=== PATIENT | female | born 1965 | race Two or more races ===

== ENCOUNTER → 2019-08-25 | Outpatient (CLI) | payer OTHER ==
[2014-03-23 11:05] VITALS: BP 129/77
[~2019-08-25] MED LIST: ALPR0.25 PO; AMLO5TAB10 PO; ASPI-482 PO; IBUP-1060 PO; LISI1TAB20 PO; LORA10TA68 PO; METF10007 PO; OMEG1CAP6 PO; SAXA5TAB PO; SIMV20TA18 PO; TRIA15CR TP
--- NOTE | 2019-08-25 15:08 | RAD ---
EXAM: Left lower extremity venous Doppler sonogram. HISTORY: Pain and swelling. TECHNIQUE: Del Rosario scale and color Doppler sonographic evaluation of the left lower extremity veins with spectral waveform analysis was performed. FINDINGS: There is normal color flow, normal compressibility and there are normal spectral waveforms in the common femoral, superficial femoral, popliteal, posterior tibial and greater saphenous veins. IMPRESSION: No Doppler evidence of lower extremity deep venous thrombosis. Electronically signed by: Rayne Arango MD (08/25/2019 3:05 PM) [id number]
== END ==
LOC: US 14:30
PROVIDERS: ATTEND Internal Medicine
DX: M79.89 Other specified soft tissue disorders (principal)
CPT/HCPCS: 93971

== ENCOUNTER 2021-05-17 14:40 | Inpatient (IN) | payer OTHER ==
[~2021-05-17] VITALS: Ht 157.5 cm; Wt 74.9 kg
[~2021-05-17 14:40] MED LIST changes: +AMLO-186 PO; -AMLO5TAB10 PO; -LISI1TAB20 PO; +LISI1TAB39 PO
--- NOTE | 2021-05-17 14:56 | PHYS DOC ---
Past Medical History Past Medical History: Diabetes-Type II Smoking Status: Never Smoker General Adult HPI: HPI: Patient is a 55 year old diabetic female who presents via EMS with body aches and chills. Patient reports she started experiencing dysuria 4 days ago, accompanied by body aches and low abdominal pain for the past 3 days. Today, she called EMS because she started having shaking chills as well. She was seen by her primary care provider yesterday, who diagnosed her with a UTI. She started taking Bactrim yesterday. She has not experienced any dysuria since starting her antibiotic treatment. Patient states she took Tylenol around 1230 today, and her body aches have improved significantly. She also is no longer "shaking." Patient denies having had fever at home and, per EMS, she did not have a fever en route. She denies emesis, diarrhea, constipation. Patient reports that she does not take her blood sugar daily, but was instructed to start yesterday by her primary care doctor. She reports her last hemoglobin A1c was 9. Review of Systems: Review of Systems: Constitutional: See HPI Eyes: Denies change in visual acuity or visual field deficits. HENT: Denies nasal congestion or sore throat. Respiratory: Denies cough or shortness of breath. Cardiovascular: Denies chest pain or edema. GI: See HPI : See HPI Musculoskeletal: Denies back pain or joint pain. Integument: Denies rash or other skin lesions. Neurologic: Denies focal weakness or sensory changes. Endocrine: Denies polyuria or polydipsia. Heart Score: C/O Chest Pain: No Allergies: Allergies: Allergies Coded Allergies Type Severity Reaction Last Updated Verified No Known Drug Allergies 03/22/14 No Physical Exam: PE: Constitutional: Well developed, well nourished, no acute distress, non-toxic appearance. Cardiovascular: Heart rate regular rhythm, no murmur. Lungs & Thorax: Bilateral breath sounds clear to auscultation. Abdomen: Bowel sounds normal, soft, suprapubic tenderness appreciated, no masses, no pulsatile masses. Skin: Warm, dry, no erythema, no rash. Back: No tenderness, no CVA tenderness. Extremities: No tenderness, no cyanosis, no clubbing, ROM intact, no edema. Neurologic: Alert and oriented x4, motor function grossly intact, sensory fun ction grossly intact, no focal deficits noted. Current Patient Data: Labs: Laboratory Tests Test 05/17/21 15:08 05/17/21 15:53 White Blood Count 9.0 x10^3/uL (4.0-11.0) Red Blood Count 4.24 x10^6/uL (3.50-5.40) Hemoglobin 12.5 g/dL (12.0-15.5) Hematocrit 36.9 % (36.0-47.0) Mean Corpuscular Volume 87 fL (79-100) Mean Corpuscular Hemoglobin 29 pg (25-35) Mean Corpuscular Hemoglobin Concent 34 g/dL (31-37) Red Cell Distribution Width 12.8 % (11.5-14.5) Platelet Count 189 x10^3/uL (140-400) Neutrophils (%) (Auto) 89 % (31-73) Lymphocytes (%) (Auto) 8 % (24-48) Monocytes (%) (Auto) 2 % (0-9) Eosinophils (%) (Auto) 1 % (0-3) Basophils (%) (Auto) 0 % (0-3) Neutrophils # (Auto) 8.0 x10^3/uL (1.8-7.7) Lymphocytes # (Auto) 0.7 x10^3/uL (1.0-4.8) Monocytes # (Auto) 0.2 x10^3/uL (0.0-1.1) Eosinophils # (Auto) 0.0 x10^3/uL (0.0-0.7) Basophils # (Auto) 0.0 x10^3/uL (0.0-0.2) Sodium Level 135 mmol/L (136-145) Potassium Level 3.8 mmol/L (3.5-5.1) Chloride Level 99 mmol/L (98-107) Carbon Dioxide Level 21 mmol/L (21-32) Anion Gap 15 (6-14) Blood Urea Nitrogen 42 mg/dL (7-20) Creatinine 1.4 mg/dL (0.6-1.0) Estimated GFR (Cockcroft-Gault) 39.0 BUN/Creatinine Ratio 30 (6-20) Glucose Level 200 mg/dL (70-99) Lactic Acid Level 1.4 mmol/L (0.4-2.0) Calcium Level 9.0 mg/dL (8.5-10.1) Total Bilirubin 0.5 mg/dL (0.2-1.0) Aspartate Amino Transf (AST/SGOT) 18 U/L (15-37) Alanine Aminotransferase (ALT/SGPT) 31 U/L (14-59) Alkaline Phosphatase 102 U/L (46-116) Total Protein 6.4 g/dL (6.4-8.2) Albumin 3.3 g/dL (3.4-5.0) Albumin/Globulin Ratio 1.1 (1.0-1.7) Urine Collection Type Unknown Urine Color Yellow Urine Clarity Turbid Urine pH 5.0 (<5.0-8.0) Urine Specific [place] 1.020 (1.000-1.030) Urine Protein Negative mg/dL (NEG-TRACE) Urine Glucose (UA) >=1000 mg/dL (NEG) Urine Ketones (Stick) Negative mg/dL (NEG) Urine Blood Small (NEG) Urine Nitrite Negative (NEG) Urine Bilirubin Negative (NEG) Urine Urobilinogen Dipstick 0.2 mg/dL (0.2 mg/dL) Urine Leukocyte Esterase Moderate (NEG) Urine RBC 3-5 /HPF (0-2) Urine WBC >40 /HPF (0-4) Urine Bacteria Moderate /HPF (0-FEW) Urine Mucus Mod /LPF Vital Signs: Vital Signs Date Time Temp Pulse Resp B/P (MAP) Pulse Ox O2 Delivery O2 Flow Rate FiO2 05/17/21 15:58 102.3 125 18 136/71 (92) 99 Room Air 102.3 EKG: EKG: Course & Med Decision Making: Course & Med Decision Making Pertinent Labs and Imaging studies reviewed. (See chart for details) Patient has known UTI and has had less than 24 hours of antibiotic therapy. Lab work today will include urinalysis and labs. Patient was febrile on arrival and remains tachycardic in the department with urine showing signs of UTI. Additionally, the patient is an uncontrolled d iabetic and experienced reported rigors. She will be admitted to her primary care doctor, Dr. Martinez, for inpatient treatment. Per Dr. Martinez's request, patient was started on Rocephin. Dragon Disclaimer: Dragon Disclaimer: This electronic medical record was generated, in whole or in part, using a voice recognition dictation system. Departure Departure Impression: Primary Impression: Sepsis secondary to UTI Disposition: ADMITTED INPATIENT Admitting Physician: Ashwin Martinez Condition: GUARDED Referrals: ASHWIN MARTINEZ MD (PCP) LING ALFONSO May 17, 2021 14:56
[2021-05-17 15:23] LABS: BASO % 0 % (0-3); EOS % 1 % (0-3); HEMATOCRIT 36.9 % (36.0-47.0); HEMOGLOBIN 12.5 g/dL (12.0-15.5); LYMPH # 0.7 x10^3/uL (1.0-4.8); LYMPH % 8 % (24-48); MEAN CORPUSCULAR HEMOGLOBIN 29 pg (25-35); MEAN CORPUSCULAR HGB CONC 34 g/dL (31-37); MEAN CORPUSCULAR VOLUME 87 fL (79-100); MONO # 0.2 x10^3/uL (0.0-1.1); MONO % 2 % (0-9); NEUT % 89 % (31-73); PLATELET COUNT 189 x10^3/uL (140-400); RED BLOOD COUNT 4.24 x10^6/uL (3.50-5.40); RED CELL DISTRIBUTION WIDTH 12.8 % (11.5-14.5)
[2021-05-17 15:29] LABS: CREATININE 1.4 mg/dL (0.6-1.0); POTASSIUM 3.8 mmol/L (3.5-5.1)
[2021-05-17 15:35] LABS: ALBUMIN 3.3 g/dL (3.4-5.0); ALBUMIN/GLOBULIN RATIO 1.1 (1.0-1.7); TOTAL BILIRUBIN 0.5 mg/dL (0.2-1.0); TOTAL PROTEIN 6.4 g/dL (6.4-8.2)
[2021-05-17 16:02] LABS: BILIRUBIN,URINE NEGATIVE (NEG); CLARITY,URINE TURBID; COLOR,URINE YELLOW; NITRITE,URINE NEGATIVE (NEG); PROTEIN,URINE NEGATIVE (NEG-TRACE); UROBILINOGEN,URINE 0.2 mg/dL (0.2 mg/dL)
[2021-05-17 16:16] LABS: BACTERIA,URINE MODERATE /HPF (0-FEW); WBC,URINE >40 /HPF (0-4)
[2021-05-17] MEDS ORDERED: IV RINGERS,LACTATED 1000ML 1,000 ML IV ONE (16:45)
[2021-05-17] MEDS ORDERED: IBUPROFEN 200 MG TABLET. PO ONE (17:00)
[2021-05-17] MEDS ORDERED: cefTRIAXone IV Push 1 GM VIAL. IVP ONE (17:22)
[2021-05-17 19:50] VITALS: BP 114/66
--- NOTE | 2021-05-17 19:50 | NUR ---
Received patient from ER to room 442 per cart. Admitting diagnosis: septic UTI. Patient c/o painful urination for several days and she went to see PCP yesterday. Patient was started on Bactrim. During last night and today, patient started having a fever with chills and shaking. Patient called EMS and was brought to the hospital. Patient states she is allergic to Oxycodone. Patient denies pain on admission to floor. Patient was started on IV antibiotics in the ER. Will continue to monitor.
[2021-05-17] MEDS ORDERED: DEXTROSE 50% 25 GM / 50ML DISP.SYRIN. IV PRN (21:30)
[2021-05-17 23:00] VITALS: BP 100/55
[2021-05-17] MEDS ORDERED: MULT-658 PO (23:02)
[2021-05-17] MEDS ORDERED: vit D3 PO (23:02)
[2021-05-17] MEDS ORDERED: EMPA1TAB PO (23:02)
[2021-05-17] MEDS ORDERED: BUSP5TAB PO (23:02)
[2021-05-17] MEDS: IV NORMAL SALINE 1000ML BAG 1,000 ML IV SCH (23:10)
[2021-05-18 03:06] VITALS: BP 94/62
[2021-05-18 07:45] VITALS: BP 113/59
[2021-05-18] MEDS ORDERED: metFORMIN 500 MG TABLET PO SCH (08:00)
[2021-05-18] MEDS: INSULIN LISPRO 300 UNITS/3 ML VIAL. SQ SCH ×3 (08:00→17:00)
[2021-05-18] MEDS: ALPRAZolam 0.25 MG TABLET PO SCH (08:46)
[2021-05-18] MEDS: IV NORMAL SALINE 1000ML BAG 1,000 ML IV SCH ×2 (08:50→19:19)
[2021-05-18] MEDS: hydroCHLOROthiazide 25 MG TABLET PO SCH (09:00)
[2021-05-18] MEDS: LISINOPRIL 20 MG TABLET PO SCH (09:00)
[2021-05-18] MEDS: ASPIRIN ENTERIC COATED 81 MG TABLET.DR. PO SCH (09:00)
[2021-05-18 09:26] LABS: BASO % 0 % (0-3); EOS # 0.1 x10^3/uL (0.0-0.7); EOS % 2 % (0-3); HEMATOCRIT 35.4 % (36.0-47.0); HEMOGLOBIN 11.9 g/dL (12.0-15.5); LYMPH # 1.4 x10^3/uL (1.0-4.8); LYMPH % 19 % (24-48); MEAN CORPUSCULAR HEMOGLOBIN 30 pg (25-35); MEAN CORPUSCULAR HGB CONC 34 g/dL (31-37); MEAN CORPUSCULAR VOLUME 87 fL (79-100); MONO # 0.4 x10^3/uL (0.0-1.1); MONO % 6 % (0-9); NEUT # 5.6 x10^3/uL (1.8-7.7); NEUT % 73 % (31-73); PLATELET COUNT 209 x10^3/uL (140-400); RED BLOOD COUNT 4.04 x10^6/uL (3.50-5.40); RED CELL DISTRIBUTION WIDTH 12.8 % (11.5-14.5); WHITE BLOOD COUNT 7.6 x10^3/uL (4.0-11.0)
[2021-05-18] MEDS ORDERED: busPIRone 5 MG TABLET. PO PRN (09:30)
--- NOTE | 2021-05-18 09:30 | PDOC ---
Provider Note Date of Service: DATE: 05/18/21 TIME: 09:29 Provider Note Pt seen.H&P dictated.[id number]. Justifications for Admission Other Justification ASHWIN VICTORIA MD May 18, 2021 09:30
[2021-05-18 09:39] LABS: CREATININE 1.1 mg/dL (0.6-1.0); GFR 51.6; POTASSIUM 3.9 mmol/L (3.5-5.1)
--- NOTE | 2021-05-18 09:50 | HP ---
DATE OF SERVICE: 05/18/2021 ADMIT DATE: 05/17/2021 REASON FOR ADMISSION TO THE HOSPITAL: Fever, chills, possible pyelonephritis. HISTORY OF PRESENT ILLNESS: The patient is a 55-year-old female with history of diabetes, hypertension, hyperlipidemia. She was seen in the office for UTI as well as some back pain, was given Bactrim, but her condition did not improve, came to the Emergency Room, fever of 101, flank pain and the patient was admitted with diagnosis of possible pyelonephritis, was given IV Rocephin and fluids and the patient is supposed to get CT scan of the abdomen and pelvis today. PAST MEDICAL HISTORY: Diabetes; hypertension; history of uterine cancer, was treated at , had a hysterectomy, last time seen [facility] couple of weeks ago. PAST SURGICAL HISTORY: As mentioned, hysterectomy for uterine cancer. ALLERGIES: OXYCODONE. MEDICATIONS: At home on buspirone 5 mg daily, fish oil daily, Glyxambi 25/5 daily, ibuprofen p.r.n., multivitamin daily and Glizer daily. PERSONAL HISTORY: Denies smoking, alcohol, drug abuse. FAMILY HISTORY: Positive for diabetes, heart disease. REVIEW OF SYMPTOMS: Complains of back pain, chills and fever and rest of the 14 systems reviewed and negative. PHYSICAL EXAMINATION: VITAL SIGNS: The patient had a fever 102, pulse 125, respirations 18, blood pressure 136/71, O2 saturation 99 on room air. HEENT: Head is atraumatic. Pupils equal. Oral cavity, no congestion. NECK: Supple. Thyroid not enlarged. JVD not elevated. CHEST: Symmetrical. CARDIOVASCULAR: S1, S2. LUNGS: Clear. ABDOMEN: Soft. EXTERNAL GENITALIA: No Velez. RECTUM: Deferred. EXTREMITIES: No calf tenderness, no edema. NEUROLOGIC: No focal deficits. Moving all extremities. LABORATORY DATA: Shows a white count of 9, hemoglobin 12, platelets 128. Electrolytes: Sodium 135, potassium 3.8, chloride 99, bicarb 21, BUN 42, creatinine 1.4 and lactic acid 1.4. LFTs were normal. Urine shows 40 wbc, moderate leukocyte esterase. Blood culture shows gram-negative rods in both bottles. FINAL IMPRESSION: 1. Sepsis. 2. Pyelonephritis. 3. Urinary tract infection. 4. Diabetes. 5. History of uterine cancer, status post treatment. PLAN: At this time, admit to hospital, blood cultures, IV Rocephin, IV fluids, CT scan of the abdomen and pelvis and see how she improves in the next couple of days. ISAI DR: UYEN/jacque TID: [id number]
--- NOTE | 2021-05-18 10:09 | NUR ---
SW following. Discussed with RN, pt from home, room air, ada diet. Pt currently PUI for COVID. 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 RN advised no SW needs at this time. SW will continue to follow.
[2021-05-18] MEDS ORDERED: IOHEXOL 300 MG/ML 100ML VIAL. IV ONE (10:15)
[2021-05-18] MEDS ORDERED: CONTRAST GIVEN. MC PRN (10:15)
[2021-05-18 11:00] VITALS: BP 130/68
[2021-05-18] MEDS: HYDROcodone/APAP 5/325MG 1 TAB TABLET PO PRN ×2 (11:08→21:42)
--- NOTE | 2021-05-18 11:18 | RAD ---
CT of the abdomen and pelvis without contrast. 05/18/2021 9:52 AM Indication: Reason: pyelonephritis Comparison Study: None. Technique: Multidetector CT imaging of the abdomen pelvis is obtained without administration of contr ast. Findings: The visualized bilateral lung bases are clear. Gallbladder is surgically absent. The liver, spleen, bilateral adrenal glands, and pancreas have a normal noncontrast enhanced appearance. Mild perinephric stranding is seen bilaterally. Minimal prominence of the renal collecting system not ed. There is no nephrolithiasis or obstructive stone. The bladder wall appears mildly diffusely thick ened. There is no significant free fluid or free air in the abdomen or pelvis. There is no evidence of adi l obstruction or significant inflamatory change. The appendix is well visualized and grossly normal. There is no acute osseous abnormality identified. Impression: 1. Mild perinephric stranding and minimal prominence of the renal collecting systems. Mild diffuse bl adder wall thickening. Findings may represent cystitis. Upper urinary tract infection not excluded. 2. No evidence of nephrolithiasis or acute obstructive uropathy. 3. No other acute intra-abdominal abnormality is identified. CT DOSING PQRS STATEMENT: One or more of the following individualized dose reduction techniques were utilized for this examinat ion: 1. Automated exposure control 2. Adjustment of the mA and/or kV according to patient size 3. Use of iterative reconstruction technique Electronically signed by: Jason Oneil MD (05/18/2021 11:15 AM) [id number]
--- NOTE | 2021-05-18 13:12 | NUR ---
patient states she was eating cookies right before blood sugar was checked. patient states she does not feel comfortable taking insulin at this time. Patient wants to wait until dinner.
[2021-05-18] MEDS ORDERED: cefTRIAXone IV Push 1 GM VIAL. IVP SCH (17:00)
--- NOTE | 2021-05-18 17:30 | NUR ---
Care assumed of patient, report received from Radha SAINI
[2021-05-18] MEDS: IBUPROFEN 400 MG TABLET. PO SCH (18:26)
[2021-05-18 19:00] VITALS: BP 124/68
[2021-05-18] MEDS ORDERED: SIMVASTATIN 20 MG TABLET PO SCH (21:00)
[2021-05-18] MEDS: TRIAMCINOLONE ACETONIDE 0.5% TOPICAL CREAM 15GM TUBE. TP SCH (21:00)
[2021-05-18 23:00] VITALS: BP 98/58
[2021-05-19 02:48] VITALS: BP 102/60
[2021-05-19] MEDS: IV NORMAL SALINE 1000ML BAG 1,000 ML IV SCH (04:48)
[2021-05-19 07:00] VITALS: BP 116/59
[2021-05-19] MEDS: INSULIN LISPRO 300 UNITS/3 ML VIAL. SQ SCH ×2 (08:00→12:00)
[2021-05-19 08:08] LABS: BASO % 1 % (0-3); EOS # 0.2 x10^3/uL (0.0-0.7); EOS % 5 % (0-3); HEMATOCRIT 33.8 % (36.0-47.0); HEMOGLOBIN 11.4 g/dL (12.0-15.5); LYMPH % 22 % (24-48); MEAN CORPUSCULAR HEMOGLOBIN 29 pg (25-35); MEAN CORPUSCULAR HGB CONC 34 g/dL (31-37); MEAN CORPUSCULAR VOLUME 87 fL (79-100); MONO # 0.4 x10^3/uL (0.0-1.1); MONO % 10 % (0-9); NEUT # 2.7 x10^3/uL (1.8-7.7); NEUT % 62 % (31-73); PLATELET COUNT 201 x10^3/uL (140-400); RED BLOOD COUNT 3.87 x10^6/uL (3.50-5.40); RED CELL DISTRIBUTION WIDTH 12.5 % (11.5-14.5); WHITE BLOOD COUNT 4.3 x10^3/uL (4.0-11.0)
[2021-05-19 08:30] LABS: CALCIUM 8.4 mg/dL (8.5-10.1); GFR 57.6
[2021-05-19] MEDS: ASPIRIN ENTERIC COATED 81 MG TABLET.DR. PO SCH (08:47)
[2021-05-19] MEDS: IBUPROFEN 400 MG TABLET. PO SCH (08:47)
[2021-05-19] MEDS: ALPRAZolam 0.25 MG TABLET PO SCH (08:48)
[2021-05-19] MEDS: hydroCHLOROthiazide 25 MG TABLET PO SCH (09:00)
[2021-05-19] MEDS ORDERED: CHOLECALCIFEROL (VITAMIN D3) 1,000 UNIT TABLET PO SCH (09:00)
[2021-05-19] MEDS ORDERED: NON FORMULARY ITEM (Empagliflozin/Linagliptin (Glyxambi 25 mg-5 mg Tablet) 1 EACH) PO SCH (09:00)
[2021-05-19] MEDS: LISINOPRIL 20 MG TABLET PO SCH (09:00)
[2021-05-19] MEDS ORDERED: MULTIVITAMIN with MINERAL TABLET. PO SCH (09:00)
[2021-05-19] MEDS: TRIAMCINOLONE ACETONIDE 0.5% TOPICAL CREAM 15GM TUBE. TP SCH (09:00)
[2021-05-19 11:00] VITALS: BP 143/68
[2021-05-19] MEDS ORDERED: ONDANSETRON ODT 4 MG TAB.RAPDIS. PO PRN (12:00)
--- NOTE | 2021-05-19 12:08 | CONS ---
DATE OF CONSULTATION: 05/18/2021 REQUESTING PHYSICIAN: Mikey Martinez MD REASON FOR CONSULTATION: Pyelonephritis. HISTORY OF PRESENT ILLNESS: This is a 55-year-old female who started having burning with urination. The patient was seen in the office. Bactrim was given and then she started having chest pain, chest tightness and fever and chills and she was shaking hence she called ambulance and came in. The patient had 102 fever. The patient's blood culture is positive with E. coli. The patient is on Rocephin. The patient is feeling much better. She does have nausea. She denies any vomiting. Denies any chest pain, abdominal pain. Urinary symptoms has improved. Denies any bowel symptoms. PAST MEDICAL HISTORY: Positive for diabetes, hypertension, history of uterine cancer history. Has had hysterectomy. SOCIAL HISTORY: Negative for smoking, alcohol use or drug use. ALLERGIES: SHE IS LISTED ALLERGIC TO OXYCODONE. CURRENT MEDICATIONS: Reviewed. REVIEW OF SYSTEMS: As in HPI. All other systems reviewed are negative. PHYSICAL EXAMINATION: GENERAL: Alert, oriented female, not in distress. VITAL SIGNS: Stable, afebrile. HEENT: NAD. NECK: Supple, no JVP, no lymphadenopathy. LUNGS: Clear. HEART: S1, S2, regular. ABDOMEN: Soft, nontender, no organomegaly. EXTREMITIES: No edema, cyanosis. SKIN: Unremarkable. NEUROLOGIC: The patient is alert, awake, and appropriate. No focal neurologic deficit. LABORATORY DATA: White count is normal. BUN and creatinine is 26 and 1.0. Urinalysis showed more than 40 wbc's. Blood culture is positive with E. coli, susceptibilities are pending. For some reason, urine culture is not done. Abdominal CT showed mild perinephric stranding and prominence of the renal collecting system. IMPRESSION: 1. Urinary tract infection with sepsis. 2. Escherichia coli bacteremia. 3. Pyelonephritis. 4. Fever and chills. 5. Diabetes. 6. Hypertension. RECOMMENDATIONS: Continue Rocephin and as soon as susceptibilities are known, antibiotic can be switched over to the oral for possible discharge. Thank you very much, Dr. Martinez, for giving me opportunity to participate in this patient's care. KO/MACARIO DR: Renzo TID: [id number]
[2021-05-19] MEDS ORDERED: CEFD300C PO (12:14)
--- NOTE | 2021-05-19 12:15 | PDOC ---
PROGRESS NOTES Date of Service: DATE: 05/19/21 TIME: 12:15 Subjective Subjective feels good ,no fever Objective Objective Vital Signs Date Time Temp Pulse Resp B/P (MAP) Pulse Ox O2 Delivery O2 Flow Rate FiO2 05/19/21 07:39 Room Air 05/19/21 07:00 98.9 68 18 116/59 (78) 98 98.9 Intake and Output 05/19/21 07:00 Intake Total 1640 ml Balance 1640 ml Intake Oral 240 ml IV Total 700 ml Other 700 ml # Voids 4 Physical Exam Abdomen: Soft Heart: Normal S1, Normal S2 Extremities: No clubbing General: Alert HEENT: Atraumatic MUSCULOSKELETAL: No deformity Neuro: Normal speech Skin: No breakdown Diagnosis Problem List Problems Medical Problems: (1) Sepsis secondary to UTI Status: Acute Assessment Assessment Problems Medical Problems: (1) Sepsis secondary to UTI Status: Acute IMPRESSION: 1. Sepsis. 2. Pyelonephritis. 3. Urinary tract infection. 4. Diabetes. 5. History of uterine cancer, status post treatment. PLAN: E coli bacteremia due to Pyelonephritis CT scan stranding kidney d/c home cefdinir 300mg po bid x7 days f/u office in 1-2 weeks spoke with ID Plan Plan of Care Problems Medical Problems: (1) Sepsis secondary to UTI Status: Acute Comment Review of Relevant I have reviewed the following items taz (where applicable) has been applied. Labs Laboratory Tests Test 05/18/21 17:33 05/18/21 20:23 05/19/21 07:00 05/19/21 08:31 Glucose (Fingerstick) 150 mg/dL (70-99) 301 mg/dL (70-99) 135 mg/dL (70-99) White Blood Count 4.3 x10^3/uL (4.0-11.0) Red Blood Count 3.87 x10^6/uL (3.50-5.40) Hemoglobin 11.4 g/dL (12.0-15.5) Hematocrit 33.8 % (36.0-47.0) Mean Corpuscular Volume 87 fL (79-100) Mean Corpuscular Hemoglobin 29 pg (25-35) Mean Corpuscular Hemoglobin Concent 34 g/dL (31-37) Red Cell Distribution Width 12.5 % (11.5-14.5) Platelet Count 201 x10^3/uL (140-400) Neutrophils (%) (Auto) 62 % (31-73) Lymphocytes (%) (Auto) 22 % (24-48) Monocytes (%) (Auto) 10 % (0-9) Eosinophils (%) (Auto) 5 % (0-3) Basophils (%) (Auto) 1 % (0-3) Neutrophils # (Auto) 2.7 x10^3/uL (1.8-7.7) Lymphocytes # (Auto) 1.0 x10^3/uL (1.0-4.8) Monocytes # (Auto) 0.4 x10^3/uL (0.0-1.1) Eosinophils # (Auto) 0.2 x10^3/uL (0.0-0.7) Basophils # (Auto) 0.0 x10^3/uL (0.0-0.2) Sodium Level 141 mmol/L (136-145) Potassium Level 4.0 mmol/L (3.5-5.1) Chloride Level 108 mmol/L (98-107) Carbon Dioxide Level 22 mmol/L (21-32) Anion Gap 11 (6-14) Blood Urea Nitrogen 26 mg/dL (7-20) Creatinine 1.0 mg/dL (0.6-1.0) Estimated GFR (Cockcroft-Gault) 57.6 Glucose Level 146 mg/dL (70-99) Calcium Level 8.4 mg/dL (8.5-10.1) Test 05/19/21 11:54 Glucose (Fingerstick) 162 mg/dL (70-99) Microbiology 05/18/21 Blood Culture - Preliminary, Resulted NO GROWTH AFTER 1 DAY Medications Current Medications Ceftriaxone Sodium (Rocephin) 1 gm Q24H IVP Last administered on 05/18/21at 18:26; Start 05/18/21 at 17:00; Stop 05/19/21 at 12:00; Status DC Ceftriaxone Sodium (Rocephin) 2 gm Q24H IVP ; Start 05/19/21 at 13:00 Ibuprofen (Motrin) 800 mg BIDWMEALS PO Last administered on 05/19/21at 08:47; Start 05/18/21 at 17:00 Lactobacillus Rhamnosus (Culturelle) 1 cap BID PO ; Start 05/19/21 at 21:00 Metformin HCl (Glucophage) 1,000 mg DAILYWBKFT PO ; Start 05/21/21 at 08:00 Multivitamins (Thera M Plus) 1 tab DAILY PO Last administered on 05/19/21at 08:47; Start 05/19/21 at 09:00 Non-Formulary Medication (Empagliflozin/ Linagliptin (Glyxambi 25 mg-5 mg Tablet)) 1 each DAILY PO ; Start 05/19/21 at 09:00; Status UNV Ondansetron HCl (Zofran Odt) 4 mg PRN Q6HRS PRN PO NAUSEA/VOMITING; Start 05/19/21 at 12:00 Simvastatin (Zocor) 20 mg HS PO Last administered on 05/18/21at 21:36; Start 05/18/21 at 21:00 Triamcinolone Acetonide (Kenalog 0.5%) 1 mihir BID TP ; Start 05/18/21 at 21:00 Vitamin D (Vitamin D3) 1,000 unit QODAY PO Last administered on 05/19/21at 08:47; Start 05/19/21 at 09:00 Vitals/I & O Vital Sign - Last 24 Hours 05/18/21 05/18/21 05/18/21 05/18/21 19:00 19:40 21:42 22:12 Temp 98.4 98.4 Pulse 81 Resp 18 20 20 B/P (MAP) 124/68 (86) Pulse Ox 98 O2 Delivery Room Air Room Air Room Air Room Air 05/18/21 05/19/21 05/19/21 05/19/21 23:00 02:48 07:00 07:39 Temp 98.2 98.2 98.9 98.2 98.2 98.9 Pulse 61 60 68 Resp 18 18 18 B/P (MAP) 98/58 (71) 102/60 (74) 116/59 (78) Pulse Ox 98 95 98 O2 Delivery Room Air Room Air Room Air Room Air Intake and Output 05/18/21 05/18/21 05/19/21 15:00 23:00 07:00 Intake Total 1640 ml Balance 1640 ml Justifications for Admission Other Justification ASHWIN VICTORIA MD May 19, 2021 12:15
[2021-05-19] MEDS ORDERED: cefTRIAXone IV Push 2 GM VIAL. IVP SCH (13:00)
--- NOTE | 2021-05-19 15:24 | NUR ---
Pt discharged home with self care. Discharge instructions and prescriptions discussed. Pt verbalized understanding. IV removed. Pt ambulated to main entrance and was secured in car with .
[2021-05-19] MEDS ORDERED: LACTOBACILLUS RHAMNOSUS GG 1 CAPSULE. PO SCH (21:00)
[2021-05-21] MEDS ORDERED: metFORMIN 500 MG TABLET PO SCH (08:00)
== END 2021-05-19 15:42 | disposition home or self-care (01) | DRG 871 ==
LOC: ER 14:40 → ED HOLD 17:18 → 4 NORTH 18:24
PROVIDERS: ADMIT Internal Medicine; ATTEND Internal Medicine
DX: A41.51 Sepsis due to Escherichia coli [E. coli] (principal); N17.0 Acute kidney failure with tubular necrosis; N12 Tubulo-interstitial nephritis, not specified as acute or chronic; E11.9 Type 2 diabetes mellitus without complications; E78.5 Hyperlipidemia, unspecified; I10 Essential (primary) hypertension; Z83.3 Family history of diabetes mellitus; Z85.42 Personal history of malignant neoplasm of other parts of uterus; Z90.710 Acquired absence of both cervix and uterus; Z88.8 Allergy status to other drugs, medicaments and biological substances
CPT/HCPCS: 36415; 74178; 80048; 80053; 81001; 82962; 83605; 85025; 87040; 87077; 87086; 87186; 87205; 96361; 96374; G0379; J0696; J1815; J7030; J7120; Q9967; 99285-25

== ENCOUNTER 2021-11-17 18:26 | Emergency (ER) | payer OTHER ==
[~2021-11-17] VITALS: Ht 160 cm; Wt 73.3 kg
[~2021-11-17 18:26] MED LIST changes: +BUSP5TAB PO; +CEFD300C PO; +EMPA1TAB PO; +MULT-658 PO; +vit D3 PO
--- NOTE | 2021-11-17 19:02 | PHYS DOC ---
Past Medical History Past Medical History: Diabetes-Type II Past Surgical History: No Surgical History, Cholecystectomy, Other (total hysterectomy) Smoking Status: Never Smoker Alcohol Use: None Drug Use: None General Adult EDM: Chief Complaint: Chills HPI: HPI: 56-year-old female, past medical history NIDDM, hospitalization in April 2021 for urosepsis, total hysterectomy, cholecystectomy, presents with 1 day of chills and subjective fever. Denies dysuria or hematuria however endorses mild increased urinary frequency and increased thirst. Denies nausea, vomiting, sore throat, cough, chest pain, shortness of breath, abdominal pain or back pain. Covid vaccinated x 3. No travel. Review of Systems: Review of Systems: Constitutional: + subj fever and chills. [] Eyes: Denies change in visual acuity. [] HENT: Denies nasal congestion or sore throat. [] Respiratory: Denies cough or shortness of breath. [] Cardiovascular: Denies chest pain or edema. [] GI: Denies abdominal pain, nausea, vomiting, bloody stools or diarrhea. [] : Denies dysuria. [] Musculoskeletal: Denies back pain or joint pain. [] Integument: Denies rash. [] Neurologic: Denies headache, focal weakness or sensory changes. [] Endocrine: + mild increased urinary frequency and increased thirst Lymphatic: Denies swollen glands. [] Psychiatric: Denies depression or anxiety. [] Heart Score: C/O Chest Pain: No Risk Factors: Risk Factors: DM, Current or recent (<one month) smoker, HTN, HLP, family history of CAD, obesity. Risk Scores: Score 0 - 3: 2.5% MACE over next 6 weeks - Discharge Home Score 4 - 6: 20.3% MACE over next 6 weeks - Admit for Clinical Observation Score 7 - 10: 72.7% MACE over next 6 weeks - Early Invasive Strategies Allergies: Allergies: Allergies Coded Allergies Type Severity Reaction Last Updated Verified oxycodone Allergy Intermediate 05/17/21 Yes Physical Exam: PE: Constitutional: Well developed, well nourished, no acute distress, non-toxic ap pearance. [] HENT: Normocephalic, atraumatic, bilateral external ears normal, oropharynx moist, no oral exudates, nose normal. [] Eyes: PERRLA, EOMI, conjunctiva normal, no discharge. [] Neck: Normal range of motion, no tenderness, supple, no stridor. [] Cardiovascular:Heart rate regular rhythm, no murmur [] Lungs & Thorax: Bilateral breath sounds clear to auscultation [] Abdomen: Bowel sounds normal, soft, no tenderness, no masses, no pulsatile masses. [] Skin: Warm, dry, no erythema, no rash. [] Back: No tenderness, no CVA tenderness. [] Extremities: No tenderness, no cyanosis, no clubbing, ROM intact, no edema. [] Neurologic: Alert and oriented X 3, normal motor function, normal sensory function, no focal deficits noted. [] Psychologic: Affect normal, judgement normal, mood normal. [] EKG: EKG: [] Radiology/Procedures: Radiology/Procedures: [] Course & Med Decision Making: Course & Med Decision Making Pertinent Labs and Imaging studies reviewed. (See chart for details) Additional Social History: PMD from non-affiliated facility. Patient Lives at home. Family History: Non-pertinent to today's complaint. Nursing Notes Reviewed Previous Medical Records requested via [facility] Web: Reviewed by me. EMERGENT LABS AND DIAGNOSTIC STUDIES: Results were reviewed and interpreted by me as below EMERGENCY DEPARTMENT COURSE/ MEDICAL DECISION MAKING: The patient was placed on a court monitor, continuous pulse oximetry and was given supplemental oxygen. I examined the patient, evaluated and addressed patient's chief complaint. r/o infectious etiology, metabolic derangements, covid s/p ceftriaxone for UTI. COVID neg. s/p IV fluids Vitals normalized. Nontoxic appearing. CBC wnl. CMP showing mild LINDSEY Cr 1.3 and hyperglycemia 300s, likely secondary to UTI. No signs of sepsis. On re-assessment, patient feels much better. Stable for dc home with Cefdinir and routine pmd f/u. Strict ED return precautions given. The patient understands that todays Emergency Department evaluation does not represent a comprehensive medical workup, and it is impossible to diagnose all possible illnesses from a single Emergency Department visit. The patient verbalized understanding that it is absolutely necessary to have follow-up with regular primary care physician within 1-2 days for more detailed workup and continued exam. I explained the findings and plan to the patient, who expressed verbal understanding and agreed with plan for discharge and follow up. The patient was given after care instructions and welcomed to return to the ED for re-evaluation in 8-12 hours, especially for any new or worsening symptoms. Patient's blood pressure was elevated (>120/80) but appears stable without evidence of end organ damage, malignant hypertension, hypertensive emergency or urgency. The patient was counseled about the risks of hypertension and urged to pursue outpatient monitoring and therapy within a week with their primary care physician. The patient was stable at the time of discharge. DIAGNOSTIC IMPRESSION: 1. UTI 2. DM DISPOSITION: Disposition: Discharge Home. Condition: Improved Follow-Up: PMD Prescriptions: Cefdinir Return to the Emergency Department for new or worsening symptoms. Carlos Disclaimer: Carlos Disclaimer: This electronic medical record was generated, in whole or in part, using a voice recognition dictation system. Departure Departure Impression: Primary Impression: Urinary tract infection Additional Impression: DM (diabetes mellitus) Disposition: HOME / SELF CARE / HOMELESS Condition: STABLE Referrals: ASHWIN VICTORIA MD (PCP) Scripts Cefdinir (CEFDINIR) 300 Mg Capsule 1 CAP PO BID, #20 CAP Prov: MARINO ENRIQUE MD 11/17/21 MARINO ENRIQUE MD November 17, 2021 19:02
[2021-11-17] MEDS ORDERED: ACETAMINOPHEN 325 MG TABLET. PO ONE (19:15)
[2021-11-17] MEDS ORDERED: IV NORMAL SALINE 1000ML BAG 1,000 ML IV ONE (19:15)
[2021-11-17 19:21] LABS: BACTERIA,URINE MODERATE /HPF (0-FEW); RBC,URINE 0 /HPF (0-2); WBC,URINE >40 /HPF (0-4)
[2021-11-17 19:45] LABS: BASO % 0 % (0-3); EOS % 0 % (0-3); HEMATOCRIT 38.1 % (36.0-47.0); HEMOGLOBIN 12.9 g/dL (12.0-15.5); LYMPH # 0.3 x10^3/uL (1.0-4.8); LYMPH % 3 % (24-48); MEAN CORPUSCULAR HEMOGLOBIN 29 pg (25-35); MEAN CORPUSCULAR HGB CONC 34 g/dL (31-37); MEAN CORPUSCULAR VOLUME 86 fL (79-100); MONO # 0.1 x10^3/uL (0.0-1.1); MONO % 1 % (0-9); NEUT # 7.9 x10^3/uL (1.8-7.7); NEUT % 95 % (31-73); PLATELET COUNT 182 x10^3/uL (140-400); RED BLOOD COUNT 4.42 x10^6/uL (3.50-5.40); RED CELL DISTRIBUTION WIDTH 13.8 % (11.5-14.5); WHITE BLOOD COUNT 8.3 x10^3/uL (4.0-11.0)
[2021-11-17] MEDS ORDERED: cefTRIAXone IV Push 1 GM VIAL. IVP ONE (19:45)
[2021-11-17 20:14] LABS: CREATININE 1.3 mg/dL (0.6-1.0); GFR 42.4; POTASSIUM 4.1 mmol/L (3.5-5.1)
[2021-11-17 20:27] LABS: ALBUMIN 3.3 g/dL (3.4-5.0); ALBUMIN/GLOBULIN RATIO 0.8 (1.0-1.7); TOTAL BILIRUBIN 0.6 mg/dL (0.2-1.0); TOTAL PROTEIN 7.2 g/dL (6.4-8.2)
[2021-11-17 20:35] LABS: % BANDS 4 % (0-9); % EOS 1 % (0-5); % LYMPHS 3 % (24-48); % MONOS 2 % (0-10); % SEGS 90 % (35-66); PLT ESTIMATE ADEQUATE (ADEQUATE)
[2021-11-17] MEDS ORDERED: CEFD300C PO (21:04)
--- NOTE | 2021-11-17 21:04 | RAD ---
Exam: Chest one view INDICATION: Fever, pain TECHNIQUE: Frontal view of the chest Comparisons: 03/22/2014 FINDINGS: The cardiomediastinal silhouette and pulmonary vessels are within normal limits. The lung and pleural spaces are clear. IMPRESSION: No acute cardiopulmonary process. Electronically signed by: Demetra Upton MD (11/17/2021 9:01 PM) [place]
[2021-11-17 21:51] VITALS: BP 134/72
== END 2021-11-17 22:25 | disposition home or self-care (01) ==
LOC: ER 18:26
DX: N39.0 Urinary tract infection, site not specified (principal); Z20.822 Contact with and (suspected) exposure to COVID-19; E11.9 Type 2 diabetes mellitus without complications; Z90.710 Acquired absence of both cervix and uterus; Z90.49 Acquired absence of other specified parts of digestive tract; Z88.5 Allergy status to narcotic agent
CPT/HCPCS: 36415; 71045; 80053; 81001; 85007; 85025; 87077; 87086; 87186; 87426; 96361; 96374; 99285; J0696; J7030